=== PATIENT | female | born 1975 | race Hispanic/Latino ===

== ENCOUNTER 2024-06-30 04:06 | Emergency (ER) | payer OTHER ==
[~2024-06-30] VITALS: Ht 160 cm; Wt 73.5 kg
[2024-06-30] MEDS ORDERED: IOPAMIDOL 370 MG/ML 100 ML INFUS..BTL INJ ONE (04:53)
[2024-06-30] MEDS: METOCLOPRAMIDE HCL 10 MG/2ML VIAL IV ONE (05:52)
[2024-06-30] MEDS: SODIUM CHLORIDE 0.9% 500ML 500 ML IV ONE (05:52)
[2024-06-30] MEDS: DIPHENHYDRAMINE HCL INJ 50 MG/ML VIAL IV ONE (07:49)
[2024-06-30] MEDS: DEXAMETHASONE SOD PHOS INJ 4 MG/ML SDV IV ONE (07:50)
[2024-06-30] MEDS: KETOROLAC TROMETHAMINE 30 MG/ML VIAL IV STA (08:02)
[2024-06-30 08:03] VITALS: PULSE 84; RESP 16; TEMP 98.7; O2SAT 99
== END 2024-06-30 08:27 | disposition home or self-care (01) ==
LOC: FSED 04:20
DX: R51.9 Headache, unspecified (principal)
CPT/HCPCS: 70450; 70496; 70498; 80053; 81003; 85025; 93005; 96360; 96365; 96374; 96375; 99284; J1100; J1200; J1885; J2765; J7040; Q9967